=== PATIENT | male | born 1970 ===

== ENCOUNTER 2021-06-04 11:39 | Emergency (ER) | payer BC, OTHER ==
--- NOTE | 2021-06-04 13:02 | ED Physician Documentation ---
History of Present Illness - Stated complaint Stated Complaint: C+ ANTIBODY - Chief complaint Chief Complaint: General - Additonal information Additional information: 50-year-old male presents emergency department requesting Mab therapy. He tested positive for COVID-19 1 week ago at the time that he also developed his symptoms. 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 He is not yet vaccinated for COVID- 19. Denies any smoking history. He is noted to be modestly hypertensive here but denies any chest pain. He does have some mild shortness of air. He is not medicated for hypertension. Patient states the first few days of his infection were well tolerated but over the last 2 to 3 days he has developed a rattling cough as well as a fever up to 103. No nausea or vomiting. Review of Systems Constitutional: reports: Fever, Chills, Myalgias, Fatigue Eyes: reports: Reviewed and negative Ears: reports: Reviewed and negative Nose: reports: Reviewed and negative Throat: reports: Reviewed and negative Cardiac: denies: Chest pain / pressure, Palpitations, Pedal edema, Calf pain Respiratory: reports: Dyspnea, Cough. denies: Hemoptysis, Wheezing GI: denies: Abdominal Pain, Nausea, Vomiting : reports: Reviewed and negative Skin: reports: Reviewed and negative Musculoskeletal: reports: Reviewed and negative PD PAST MEDICAL HISTORY - Present Medications Home Medications: Ambulatory Orders Medication Instructions Recorded Confirmed Amox/Clav 875/125 [Augmentin] 1 each PO Q12H #14 tablet 06/04/21 Azithromycin [Zithromax] 0 mg PO DAILY #6 tablet 06/04/21 - Allergies Allergies/Adverse Reactions: Allergies Allergy/AdvReac Type Severity Reaction Status Date / Time No Known Drug Allergies Allergy Verified 06/04/21 11:59 PD ED PE NORMAL - General General: Alert and oriented X 3, No acute distress - HEENT HEENT: PERRL - Neck Neck: Supple, no meningeal sign - Cardiac Cardiac: RRR, No murmur - Respiratory Respiratory: No respiratory distress, Clear bilaterally - Abdomen Abdomen: Normal bowel sounds, Soft, Non tender, Non distended - Back Back: No CVA TTP - Derm Derm: Normal color, Warm and dry, No rash - Extremities Extremities: No deformity, No tenderness to palpate, Normal ROM s pain - Psych Psych: Normal mood, Normal affect Results - Vitals Vitals: Vital Signs - 24 hr 06/04/21 06/04/21 11:59 14:01 Temperature 37.2 C Heart Rate 84 82 Respiratory 20 19 Rate Blood Pressure 190/89 H 169/107 H O2 Saturation 98 95 Oxygen O2 Source Room air - Rads (name of study) CXR Radiology: Final report received (Right middle lobe pulmonary infiltrate consistent with pneumonia) PD MEDICAL DECISION MAKING - ED course Complexity details: reviewed old records, reviewed results, re-evaluated patient, d/w patient ED course: 50-year-old male who is 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 He developed symptoms 1 week ago and tested positive through [facility]. Gentleman is not yet vaccinated for COVID-19. He does endorse some mild dyspnea and productive cough. Fevers up to 103. He is not hypoxic on room air. He also has unremarkable cardiopulmonary auscultation. However his chest x-ray does suggest an early right middle lobe infiltrate/pneumonia. Patient will be s tarted on Augmentin and azithromycin. MAB therapy for this patient with Covid was considered and discussed with the patient. The patient was provided the handout: ``Casirivimab plus Imdevimab Fact Sheet for Patients, Parents and Caregivers, and the information within was discussed with the patient. The patient was informed of alternatives prior to receiving Mab therapy. The patient was informed that these medications are unapproved drugs that are authorized for use under Emergency Use Authorization by the FDA. The patient will be monitored for at least 1 hour after infusion is complete Patient is feeling well post Mab therapy. He is discharged from the emergency department in stable condition. Emergent return precautions discussed. Departure - Departure Disposition: Home, Self Care Clinical Impression: Pneumonia due to COVID-19 virus Prescriptions: Amox/Clav 875/125 [Augmentin] 1 each PO Q12H #14 tablet Azithromycin [Zithromax] 0 mg PO DAILY #6 tablet Comments: Kris you were seen in the emergency department today for COVID-19 infection. Your oxygen levels were normal and your lungs sounded clear. The chest x-ray showed a very mild early pneumonia in the right lung. Please fill the prescription for the azithromycin and Augmentin. This prescription has been sent electronically to the [facility] in [place]. You did receive monoclonal antibodies today in the emergency department. In general we recommend all patients that have COVID-19 to sleep on their belly. This can help improve aeration in the posterior lung cisneros. If despite taking the antibiotics and receiving the antibody therapy you have worsening cough, worsening shortness of air, have oxygen levels less than 92% at home or are severely short of breath then please return immediately to the emergency department. I do strongly recommend that you receive the COVID-19 vaccination. You can receive a vaccination 90 days after having COVID-19 infection.
--- NOTE | 2021-06-04 13:25 | XRAY Report ---
PROCEDURE: Chest 1 View X-Ray INDICATIONS: chest pain TECHNIQUE: One view of the chest was acquired. COMPARISON: None FINDINGS: Surgical changes and devices: None. Lungs and pleura: Right middle lobe pulmonary infiltrate noted. Left lung and both pleural spaces nancy ar. Mediastinum: Mediastinal contours appear normal. Heart size is normal. Bones and chest wall: No suspicious bony lesions. Overlying soft tissues appear unremarkable. IMPRESSION: Right middle lobe pulmonary infiltrate consistent with pneumonia Reviewed by: David Lemon MD on 06/04/2021 12:24 PM [place] Approved by: David Lemon MD on 06/04/2021 12:24 PM [place] Station ID: [id number]
[2021-06-04] MEDS: CASIRIVIMAB/IMDEVIMAB 10 ML in SODIUM CHLORIDE 0.9% 50 ML IV ONE (14:02)
[2021-06-04 14:15] VITALS: BP 169/107
== END 2021-06-04 15:33 | disposition home or self-care (01) ==
LOC: ED 11:39
DX: U07.1 COVID-19 (principal); J12.82 Pneumonia due to coronavirus disease 2019
CPT/HCPCS: 71045; 99284; J7040; M0243; Q0244